=== PATIENT | male | born 1945 | race Caucasian/White ===

== ENCOUNTER 2017-01-02 10:19 | Emergency (ER) | payer MEDICARE ==
[~2017-01-02] VITALS: Ht 180.3 cm; Wt 91.0 kg
[~2017-01-02 10:19] MED LIST: HTN MED PO; LOVA20TA PO; PROT40TA PO
[2017-01-02 10:21] VITALS: BP 146/84; PULSE 93; RESP 16; TEMP 98; O2SAT 95
[2017-01-02 10:30] VITALS: BP 147/87; PULSE 91; RESP 16; O2SAT 98
[2017-01-02] MEDS ORDERED: LOVA20TA PO (10:34)
[2017-01-02] MEDS ORDERED: LISI-519 PO (10:34)
[2017-01-02] MEDS ORDERED: PROT40TA PO (10:34)
[2017-01-02] MEDS ORDERED: SINUS MED (10:34)
--- NOTE | 2017-01-02 10:48 | PD ---
HPI Chief Complaint: Hypertension Time Seen by Provider: 10:29 Travel History International Travel<30 days: No Contact w/Intl Traveler<30days: No Traveled to known affect area: No History of Present Illness HPI This patient complains of lightheadedness. Symptoms are mild. Duration 1 hour. Started approximately 15 minutes after he took his cholesterol pill which is something he does every morning. No headache or chest pain or syncope. He is ambulatory. No other neurologic complaint. PFSH Past Medical History Arthritis: Yes Autoimmune Disease: No Heart Rhythm Problems: No Cancer: No Cardiovascular Problems: Yes (HTN) High Cholesterol: Yes Chest Pain: Yes (TODAY) Congestive Heart Failure: No Diabetes: No Diminished Hearing: No Endocrine: No Gastrointestinal Disorders: Yes (ACID REFLUX) GERD: Yes Genitourinary: No Hiatal Hernia: No Hypertension: Yes Immune Disorder: No Implanted Vascular Access Dvce: No Kidney Stones: No Medical other: Yes (reflux) Musculoskeletal: Yes Neurologic: No Psychiatric: No Reproductive: No Respiratory: Yes Immunizations Current: No Thyroid Disease: No Triglycerides - High: Yes Ulcer: No Tetanus Vaccination: Unknown Past Surgical History Abdominal Surgery: No AICD: No Arteriovenous Shunt: No Cardiac Surgery: No Ear Surgery: No Endocrine Surgery: No Eye Surgery: Yes (samy cataract surgery) Genitourinary Surgery: No Gynecologic Surgery: No Insulin Pump: No Joint Replacement: No Neurologic Surgery: No Oral Surgery: No Pacemaker: No Thoracic Surgery: No Other Surgery: Yes Social History Alcohol Use: No Tobacco Use: Yes (1 PPD ) Substance Use: No Allergies-Medications (Allergen,Severity, Reaction): Coded Allergies: Penicillin (Verified Allergy, Severe, Burning, 01/02/17) Reported Meds & Prescriptions Reported Meds & Active Scripts Active Reported [Sinus Med] Protonix (Pantoprazole Sodium) 40 Mg Tab 40 Mg PO DAILY Lisinopril 5 Mg Tab 5 Mg PO DAILY Lovastatin 20 Mg Tab 20 Mg PO DAILY Review of Systems General / Constitutional: No: Fever Eyes: No: Visual changes HENT: Positive: Lightheadedness, No: Headaches Cardiovascular: No: Chest Pain or Discomfort Respiratory: No: Shortness of Breath Gastrointestinal: No: Abdominal Pain Genitourinary: No: Dysuria Musculoskeletal: No: Pain Skin: No Rash Neurologic: Positive: Dizziness, No: Weakness Psychiatric: No: Depression Endocrine: No: Polydipsia Hematologic/Lymphatic: No: Easy Bruising Physical Exam Narrative GENERAL: Well-nourished, well-developed patient in no apparent distress. SKIN: Focused skin assessment reveals no rash and nodules. Skin is Warm and dry. HEAD: Atraumatic. Normocephalic. EYES: Pupils equal and round. No scleral icterus. No injection or drainage. ENT: No nasal bleeding or discharge. Mucous membranes pink and moist. NECK: Trachea midline. No JVD. CARDIOVASCULAR: Regular rate and rhythm. No murmur appreciated. RESPIRATORY: No accessory muscle use. Clear to auscultation. Breath sounds equal bilaterally. GASTROINTESTINAL: Abdomen soft, non-tender, nondistended. Hepatic and splenic margins not palpable. MUSCULOSKELETAL: No obvious deformities. No clubbing. No cyanosis. No edema. NEUROLOGICAL: Awake and alert. No obvious cranial nerve deficits. Motor grossly within normal limits. Normal speech. PSYCHIATRIC: Appropriate mood and affect; insight and judgment normal. Data Data Last Documented VS Vital Signs Date Time Temp Pulse Resp B/P Pulse Ox O2 Delivery O2 Flow Rate FiO2 01/02/17 11:03 77 16 157/78 94 Room Air 01/02/17 10:21 98.0 Orders Electrocardiogram (01/02/17 ) [facility] / Telemetry [email or web address] (01/02/17 10:38) [facility] Medical Decision Making Medical Screen Exam Complete: Yes Emergency Medical Condition: Yes Medical Record Reviewed: Yes Differential Diagnosis Medication side effect, vasovagal episode, cardiac arrhythmia, vertigo Narrative Course I have reviewed the patient's electronic medical record. Patient's exam is normal including neurologic exam Patient is minimally symptomatic with normal vital signs EKG shows sinus rhythm without ectopy Extended cardiac monitoring reveals sinus rhythm without ectopy He ambulated around the department without any difficulty I continued some further monitoring but he is minimally symptomatic and stable for outpatient follow-up Diagnosis Primary Impression: Dizziness Additional Instructions: The patient was advised to follow up with their physician and return if they worsen. Med/Other Pt SpecificInfo: Other Disposition: 01 DISCHARGE HOME Condition: Stable David Garza MD Jan 02, 2017 10:48
[2017-01-02 11:03] VITALS: BP 157/78; PULSE 77; RESP 16; O2SAT 94
--- NOTE | 2017-01-03 12:09 | EKG ---
Date Performed: 01/02/2017 Time Performed: 10:38:14 PTAGE: 71 years EKG: Sinus rhythm Indeterminate axis Borderline ECG PREVIOUS TRACING : 04/25/2016 23.07 DOCTOR: Chapo Edwards Interpretating Date/Time 01/03/2017 12:03:21
== END 2017-01-02 11:46 | disposition home or self-care (01) ==
LOC: PHED 10:19
DX: R42 Dizziness and giddiness (principal); R94.31 Abnormal electrocardiogram [ECG] [EKG]; I10 Essential (primary) hypertension; E78.00 Pure hypercholesterolemia, unspecified; E78.1 Pure hyperglyceridemia; F17.200 Nicotine dependence, unspecified, uncomplicated; Z87.39 Personal history of other diseases of the musculoskeletal system and connective tissue; Z87.19 Personal history of other diseases of the digestive system; Z87.09 Personal history of other diseases of the respiratory system
CPT/HCPCS: 93005

== ENCOUNTER 2017-02-14 11:22 | Emergency (ER) | payer MEDICARE ==
[~2017-02-14] VITALS: Ht 180.3 cm; Wt 91.6 kg
[~2017-02-14 11:22] MED LIST changes: -HTN MED PO; +LISI-519 PO; +SINUS MED
[2017-02-14 11:23] VITALS: BP 173/85; PULSE 100; RESP 17; TEMP 98.1; O2SAT 96
[2017-02-14] MEDS ORDERED: MELO7.5T4 PO (11:37)
--- NOTE | 2017-02-14 11:57 | PD ---
HPI Chief Complaint: Dizziness Time Seen by Provider: 11:37 Travel History International Travel<30 days: No Contact w/Intl Traveler<30days: No Traveled to known affect area: No History of Present Illness HPI 71-year-old male complaining generalized malaise and weakness and dizziness and headache. Patient states that the symptoms started about 2 months ago. Patient states that the headache gets aching headache diffuse over the head. Patient denies any visual change. Patient states that he has occasional blurred vision. Patient states that he started having neck and low back pain recently. Patient denies any coughing congestion. Patient denies any chest pain or shortness of breath. Patient denies abdominal pain. Patient denies any nausea vomiting diarrhea. Patient denies any focal weakness or numbness of extremity. Patient was seen by personal physician recently and given meloxicam for neck and back pain. Patient has history hypertension, hyperlipidemia. Patient is a smoker. Patient denies history diabetes. Patient denies history of CAD. Patient denies any history of TIA or CVA. Patient was seen by personal physician recently and waiting referral for neurologist. PFSH Past Medical History Arthritis: Yes Autoimmune Disease: No Heart Rhythm Problems: No Cancer: No Cardiovascular Problems: Yes (HTN) High Cholesterol: Yes Chest Pain: Yes (TODAY) Congestive Heart Failure: No Diabetes: No Diminished Hearing: No Endocrine: No Gastrointestinal Disorders: Yes (ACID REFLUX) GERD: Yes Genitourinary: No Hiatal Hernia: No Hypertension: Yes Immune Disorder: No Implanted Vascular Access Dvce: No Kidney Stones: No Medical other: Yes (reflux) Musculoskeletal: Yes Neurologic: No Psychiatric: No Reproductive: No Respiratory: Yes Immunizations Current: No Thyroid Disease: No Triglycerides - High: Yes Ulcer: No Tetanus Vaccination: Unknown ?: Not Past Surgical History Abdominal Surgery: No AICD: No Arteriovenous Shunt: No Cardiac Surgery: No Ear Surgery: No Endocrine Surgery: No Eye Surgery: Yes (samy cataract surgery) Genitourinary Surgery: No Gynecologic Surgery: No Insulin Pump: No Joint Replacement: No Neurologic Surgery: No Oral Surgery: No Pacemaker: No Thoracic Surgery: No Other Surgery: Yes Social History Alcohol Use: No Tobacco Use: Yes (1 PPD ) Substance Use: No Allergies-Medications (Allergen,Severity, Reaction): Coded Allergies: Penicillin (Verified Allergy, Severe, Burning, 02/14/17) Reported Meds & Prescriptions Reported Meds & Active Scripts Active Reported Meloxicam 7.5 Mg Tab 7.5 Mg PO DAILY Protonix (Pantoprazole Sodium) 40 Mg Tab 40 Mg PO DAILY Lisinopril 5 Mg Tab 5 Mg PO EVERY OTHER DAY Lovastatin 20 Mg Tab 20 Mg PO DAILY Review of Systems General / Constitutional: No: Fever Eyes: No: Visual changes HENT: Positive: Headaches, Lightheadedness Cardiovascular: No: Chest Pain or Discomfort Respiratory: No: Shortness of Breath Gastrointestinal: No: Abdominal Pain Genitourinary: No: Dysuria Musculoskeletal: No: Pain Skin: No Rash Neurologic: No: Weakness Psychiatric: No: Depression Endocrine: No: Polydipsia Hematologic/Lymphatic: No: Easy Bruising Physical Exam Narrative GENERAL: Well-nourished, well-developed patient. SKIN: Focused skin assessment warm/dry. HEAD: Normocephalic. EYES: No scleral icterus. No injection or drainage. Pupils 2 mm equal reactive. NECK: Supple, trachea midline. No JVD or lymphadenopathy. No meningismus CARDIOVASCULAR: Regular rate and rhythm without murmurs, gallops, or rubs. RESPIRATORY: Breath sounds equal bilaterally. No accessory muscle use. GASTROINTESTINAL: Abdomen soft, non-tender, nondistended. MUSCULOSKELETAL: No cyanosis, or edema. BACK: Nontender without obvious deformity. No CVA tenderness. Neurologic exam: Patient's awake and alert oriented 3. No obvious focal neurological deficit. Data Data Last Documented VS Vital Signs Date Time Temp Pulse Resp B/P Pulse Ox O2 Delivery O2 Flow Rate FiO2 02/14/17 11:59 96 02/14/17 11:33 16 02/14/17 11:23 98.1 100 173/85 Orders Electrocardiogram (02/14/17 11:45) Complete Blood Count With Diff (02/14/17 11:45) Comprehensive Metabolic Panel (02/14/17 11:45) Troponin I (02/14/17 11:45) Prothrombin Time / Inr (Pt) (02/14/17 11:45) Act Partial Throm Time (Ptt) (02/14/17 11:45) Urinalysis - C+S If Indicated (02/14/17 11:45) Thyroid Stimulating Hormone (02/14/17 11:45) Chest, Single Ap (02/14/17 11:45) Ct Brain W/O Iv Contrast(Rout) (02/14/17 11:45) Iv Access Insert/Monitor (02/14/17 11:45) Ecg Monitoring (02/14/17 11:45) Oximetry (02/14/17 11:45) Labs Laboratory Tests Test 02/14/17 02/14/17 11:57 13:15 White Blood Count 6.4 TH/MM3 Red Blood Count 5.28 MIL/MM3 Hemoglobin 16.0 GM/DL Hematocrit 47.7 % Mean Corpuscular Volume 90.5 FL Mean Corpuscular Hemoglobin 30.4 PG Mean Corpuscular Hemoglobin 33.6 % Concent Red Cell Distribution Width 12.3 % Platelet Count 168 TH/MM3 Mean Platelet Volume 7.9 FL Neutrophils (%) (Auto) 67.8 % Lymphocytes (%) (Auto) 21.8 % Monocytes (%) (Auto) 6.6 % Eosinophils (%) (Auto) 1.1 % Basophils (%) (Auto) 2.7 % Neutrophils # (Auto) 4.3 TH/MM3 Lymphocytes # (Auto) 1.4 TH/MM3 Monocytes # (Auto) 0.4 TH/MM3 Eosinophils # (Auto) 0.1 TH/MM3 Basophils # (Auto) 0.2 TH/MM3 CBC Comment DIFF FINAL Differential Comment Prothrombin Time 12.2 SEC Prothromb Time International 1.1 RATIO Ratio Activated Partial 21.7 SEC Thromboplast Time Sodium Level 139 MEQ/L Potassium Level 4.1 MEQ/L Chloride Level 104 MEQ/L Carbon Dioxide Level 26.1 MEQ/L Anion Gap 9 MEQ/L Blood Urea Nitrogen 19 MG/DL Creatinine 1.00 MG/DL Estimat Glomerular Filtration 73 ML/MIN Rate Random Glucose 173 MG/DL Calcium Level 9.2 MG/DL Total Bilirubin 0.8 MG/DL Aspartate Amino Transf 41 U/L (AST/SGOT) Alanine Aminotransferase 47 U/L (ALT/SGPT) Alkaline Phosphatase 71 U/L Troponin I LESS THAN 0.02 NG/ML Total Protein 7.1 GM/DL Albumin 3.7 GM/DL Thyroid Stimulating Hormone 4.580 uIU/ML 3rd Gen Urine Collection Type CLEAN CATCH Urine Color YELLOW Urine Turbidity CLEAR Urine pH 5.5 Urine Specific [place] 1.008 Urine Protein NEG mg/dL Urine Glucose (UA) NEG mg/dL Urine Ketones NEG mg/dL Urine Occult Blood SMALL Urine Nitrite NEG Urine Bilirubin NEG Urine Leukocyte Esterase NEG Urine RBC 4-9 /hpf Urine Squamous Epithelial 0-5 /hpf Cells Microscopic Urinalysis Comment CULT NOT INDICATED Urine Collection Time 13:15 [facility] Medical Decision Making Medical Screen Exam Complete: Yes Emergency Medical Condition: Yes Interpretation(s) Last Impressions Head CT 02/14/17 1145 Signed Impressions: Service Date/Time: Tuesday, February 14, 2017 12:02 - CONCLUSION: White matter disease is identified end remote appearing lacunar infarcts. Andrei St MD Chest x-ray shows no acute pulmonary process. CBC within normal limit. 1331 PM. CBC within normal limit. BUN 19. Glucose 173. Cardiac enzymes are normal. TSH 4.58. Differential Diagnosis Differential diagnosis including migraine headache, tension headache, cluster headache, intracranial pathology, dehydration, electrolyte imbalance, Narrative Course 71-year-old male with persistent headache, dizziness, neck pain back pain. Diagnosis Primary Impression: Cephalgia Qualified Code: R51 - Chronic nonintractable headache, unspecified headache type Additional Impression: Dizziness Patient Instructions: General Instructions Med/Other Pt SpecificInfo: Prescription(s) given Scripts Luyqdajlww-Lwwkbccyidtzy-Mlqvbkvx (Fioricet)50-300-40 Mg Cap1-2 Cap PO Q6H PRN ( HEADACHE) #30 CAP Ref 0 Prov:Osvaldo Mariscal MD 02/14/17 Meclizine 25 Mg Tab25 Mg PO TID PRN (VERTIGO) #30 TAB Ref 0 Prov:Osvaldo Mariscal MD 02/14/17 Disposition: 01 DISCHARGE HOME Condition: Stable Osvaldo Mariscal MD February 14, 2017 11:57
[2017-02-14 11:59] VITALS: O2SAT 96
[2017-02-14 12:14] LABS: AUTOMATED NEUTROPHIL # 4.3 TH/MM3 (1.8-7.7); BASOPHIL # 0.2 TH/MM3 (0-0.2); BASOPHIL % 2.7 % (0.0-2.0); EOSINOPHIL # 0.1 TH/MM3 (0-0.4); EOSINOPHIL % 1.1 % (0.0-4.0); HEMATOCRIT 47.7 % (39.0-51.0); HEMO FLAGS DIFF FINAL; LYMPH % 21.8 % (9.0-44.0); LYMPHOCYTE # 1.4 TH/MM3 (1.0-4.8); MEAN CELL VOLUME 90.5 FL (80.0-100.0); MEAN CORPUSCULAR HEMOGLOBIN 30.4 PG (27.0-34.0); MEAN CORPUSCULAR HGB CONC 33.6 % (32.0-36.0); MONO % 6.6 % (0.0-8.0); NEUT % 67.8 % (16.0-70.0); PLATELET COUNT 168 TH/MM3 (150-450); RED BLOOD COUNT 5.28 MIL/MM3 (4.50-5.90); RED CELL DISTRIBUTION WIDTH 12.3 % (11.6-17.2); WHITE BLOOD COUNT 6.4 TH/MM3 (4.0-11.0)
--- NOTE | 2017-02-14 12:34 | RADHPO ---
EXAM DATE/TIME: 02/14/2017 12:02 [facility] COMPARISON: No previous studies available for comparison. INDICATIONS : Dizziness and generalized weakness. RADIATION DOSE: 63.77 CTDIvol (mGy) MEDICAL HISTORY : Hypertension. SURGICAL HISTORY : None. ENCOUNTER: Initial ACUITY: 1 day PAIN SCALE: 0/10 LOCATION: cranial TECHNIQUE: Multiple contiguous axial images were obtained of the head. Using automated exposure control and adj ustment of the mA and/or kV according to patient size, radiation dose was kept as low as reasonably a chievable to obtain optimal diagnostic quality images. FINDINGS: There is patchy hypodensity in the bilateral periventricular white matter, nonspecific though felt to be characteristic of mild chronic microvascular ischemic disease. There are lacunar infarcts present in the basal ganglia bilaterally. No fractures. No hemorrhage. No masses are seen. CONCLUSION: White matter disease is identified end remote appearing lacunar infarcts. Andrei St MD on February 14, 2017 at 12:31 Board Certified Radiologist. This report was verified electronically.
[2017-02-14 12:42] LABS: CHLORIDE 104 MEQ/L (98-107); SODIUM (NA) 139 MEQ/L (136-145)
[2017-02-14 12:45] LABS: APTT (PATIENT) 21.7 SEC (24.3-30.1); INTERNATIONAL NORMALIZED RATIO 1.1 RATIO; PROTHROMBIN TIME - PATIENT 12.2 SEC (9.8-11.6)
[2017-02-14 12:47] LABS: ANION GAP 9 MEQ/L (5-15); BICARBONATE 26.1 MEQ/L (21.0-32.0); BLOOD UREA NITROGEN 19 MG/DL (7-18)
--- NOTE | 2017-02-14 12:47 | RADHPO ---
EXAM DATE/TIME: 02/14/2017 12:32 [facility] COMPARISON: CHEST SINGLE AP, April 25, 2016, 17:20. INDICATIONS : Short of breath and dizziness MEDICAL HISTORY : None. SURGICAL HISTORY : None. ENCOUNTER: Initial ACUITY: 1 day PAIN SCORE: 3/10 LOCATION: Bilateral chest FINDINGS: A single view of the chest demonstrates the lungs to be symmetrically aerated without evidence of mas s, infiltrate or effusion. The cardiomediastinal contours are unremarkable. Osseous structures are intact. CONCLUSION: No acute disease. Adama Castro MD on February 14, 2017 at 12:45 Board Certified Radiologist. This report was verified electronically.
[2017-02-14 12:50] LABS: ALT (GPT) 47 U/L (12-78); AST (GOT) 41 U/L (15-37); GLOMERULAR FILTRATION RATE 73 ML/MIN (>89)
[2017-02-14 12:51] LABS: TOTAL BILIRUBIN ADULT 0.8 MG/DL (0.2-1.0)
[2017-02-14 12:53] LABS: ALKALINE PHOSPHATASE 71 U/L (45-117)
[2017-02-14 13:02] LABS: POTASSIUM 4.1 MEQ/L (3.5-5.1)
[2017-02-14 13:20] LABS: BLOOD, URINE SMALL (NEG); GLUCOSE,URINE NEG (NEG); KETONE, URINE NEG (NEG); NITRITE,URINE NEG (NEG); PH, URINE 5.5 (5.0-8.5)
[2017-02-14 13:26] LABS: METHOD OF COLLECTION CLEAN CATCH; URINE COLOR YELLOW (YELLW/STRAW)
[2017-02-14 13:27] LABS: COMMENT (UR) CULT NOT INDICATED; CULTURE IF INDICATED CULT NOT INDICATED; SQUAMOUS EPITHELIAL CELL URINE 0-5 /hpf (0-5)
[2017-02-14] MEDS ORDERED: MECL-62 PO (13:45)
[2017-02-14] MEDS ORDERED: BUTA1CAP PO (13:46)
[2017-02-14 14:01] VITALS: BP 142/92
--- NOTE | 2017-02-15 17:38 | EKG ---
Date Performed: 02/14/2017 Time Performed: 11:54:40 PTAGE: 71 years EKG: Sinus tachycardia with PVC(s) Nonspecific ST and T wave abnormalities PREVIOUS TRACING : 01/02/2017 10.38 Compared to the previous tracing, rate has increased DOCTOR: Jaya Mix Interpretating Date/Time 02/15/2017 17:37:36
== END 2017-02-14 14:05 | disposition home or self-care (01) ==
LOC: PHED 11:22
DX: R51 Headache (principal); R42 Dizziness and giddiness; M54.2 Cervicalgia; M54.9 Dorsalgia, unspecified; I10 Essential (primary) hypertension; E78.5 Hyperlipidemia, unspecified; E78.00 Pure hypercholesterolemia, unspecified; K21.9 Gastro-esophageal reflux disease without esophagitis; F17.200 Nicotine dependence, unspecified, uncomplicated
CPT/HCPCS: 70450; 71010; 80053; 81001; 84443; 84484; 85025; 85610; 85730; 93005; 99285

== ENCOUNTER 2017-06-04 15:09 | Emergency (ER) | payer MEDICARE ==
[~2017-06-04] VITALS: Ht 180.3 cm; Wt 91.1 kg
[~2017-06-04 15:09] MED LIST changes: +BUTA1CAP PO; +MECL-62 PO; +MELO7.5T4 PO; -SINUS MED
[2017-06-04 15:16] VITALS: BP 160/86; PULSE 116; RESP 16; TEMP 98.2; O2SAT 97
[2017-06-04 17:27] VITALS: BP 171/83; PULSE 98; RESP 16; TEMP 98.2; O2SAT 98
[2017-06-04 19:28] VITALS: RESP 18; O2SAT 97
[2017-06-04 19:29] VITALS: BP 137/80; PULSE 85; RESP 18; O2SAT 97
[2017-06-04] MEDS ORDERED: ASPIRIN 81 MG CHEW TAB PO ONE (19:30)
[2017-06-04] MEDS ORDERED: SODIUM CHLORIDE 0.9% FLUSH 10 ML FLUSH IVF PRN (19:30)
--- NOTE | 2017-06-04 19:39 | RADRPT ---
EXAM DATE/TIME: 06/04/2017 19:29 [facility] COMPARISON: CHEST SINGLE AP, February 14, 2017, 12:32. INDICATIONS : Chest pain today. MEDICAL HISTORY : Hypertension. SURGICAL HISTORY : None. ENCOUNTER: Initial ACUITY: 1 day PAIN SCORE: 4/10 LOCATION: Bilateral chest FINDINGS: A single view of the chest demonstrates the lungs to be symmetrically aerated without evidence of mas s, infiltrate or effusion. The cardiomediastinal contours are unremarkable. Osseous structures are intact. CONCLUSION: No acute disease. Javi Morgan MD on June 04, 2017 at 19:36 Board Certified Radiologist. This report was verified electronically.
[2017-06-04 19:49] VITALS: BP_SYST 130; BP_SYST 134; BP_DIAS 71; BP_DIAS 78
--- NOTE | 2017-06-04 20:01 | PD ---
HPI Chief Complaint: Chest Pain Time Seen by Provider: 19:20 Travel History International Travel<30 days: No Contact w/Intl Traveler<30days: No Traveled to known affect area: No History of Present Illness HPI 72-year-old male presents to the emergency department by private transportation for complaint of 3 days of retrosternal burning chest pain. Patient reports pain was up to a 6 in intensity is currently 2/10 in intensity. Patient states that he has reflux esophagitis with similar symptoms. Patient does have history of hypertension dyslipidemia and tobaccoism. Patient states he has not taken his medications today. Patient does not recall if he took his medications last night. Patient states earlier today while having his chest discomfort he felt weak had referred discomfort to the left upper extremity and had some mild diaphoresis. Patient did have reportedly a negative stress test approximately 1 year ago was seen by Dr. Olguin for an echocardiogram reportedly 6 months ago that was reportedly unremarkable. Patient denies history of diabetes or any family history of cardiac disease. Patient is not taking medication for his discomfort prior to arrival to the emergency department included did not take aspirin. Patient's only prescription he feels much better at this time and was just nervous. Patient denies any abdominal pain. Patient denies any referred neck jaw back or abdominal pain did note some vague left shoulder discomfort. PFSH Past Medical History Narrative Medical Hypertension dyslipidemia chest pain vertigo tobaccoism; nursing notes reviewed Arthritis: Yes Autoimmune Disease: No Heart Rhythm Problems: No Cancer: No Cardiovascular Problems: Yes (HTN) High Cholesterol: Yes Chest Pain: Yes (TODAY) Congestive Heart Failure: No Diabetes: No Diminished Hearing: Yes (HEAERING AIDS) Endocrine: No Gastrointestinal Disorders: Yes (ACID REFLUX) GERD: Yes Genitourinary: No Hiatal Hernia: No Hypertension: Yes Immune Disorder: No Implanted Vascular Access Dvce: No Kidney Stones: No Medical other: Yes (reflux) Musculoskeletal: Yes Neurologic: No Psychiatric: No Reproductive: No Respiratory: Yes Immunizations Current: No Thyroid Disease: No Triglycerides - High: Yes Ulcer: No Tetanus Vaccination: Unknown Influenza Vaccination: No Past Surgical History Abdominal Surgery: No AICD: No Arteriovenous Shunt: No Cardiac Surgery: No Ear Surgery: No Endocrine Surgery: No Eye Surgery: Yes (samy cataract surgery) Genitourinary Surgery: No Gynecologic Surgery: No Insulin Pump: No Joint Replacement: No Neurologic Surgery: No Oral Surgery: No Pacemaker: No Thoracic Surgery: No Other Surgery: Yes Social History Alcohol Use: No Tobacco Use: Yes (1 PPD ) Substance Use: No Allergies-Medications (Allergen,Severity, Reaction): Coded Allergies: penicillin G (Unverified Allergy, Severe, Burning, 06/04/17) Reported Meds & Prescriptions Reported Meds & Active Scripts Active Reported Protonix (Pantoprazole Sodium) 40 Mg Tab 40 Mg PO DAILY Lisinopril 5 Mg Tab 5 Mg PO EVERY OTHER DAY Lovastatin 20 Mg Tab 20 Mg PO DAILY Review of Systems Except as stated in HPI: all other systems reviewed are Neg General / Constitutional: No: Fever, Chills Eyes: No: Visual changes HENT: No: Headaches, Vertigo, Lightheadedness, Neck Pain Cardiovascular: Positive: Chest Pain or Discomfort ( "burning"), Diaphoresis Respiratory: No: Shortness of Breath Gastrointestinal: No: Nausea Genitourinary: No: Flank Pain Musculoskeletal: No: Pain Skin: No Rash Neurologic: Positive: Weakness Psychiatric: No: Anxiety Hematologic/Lymphatic: No: Lymph Node Enlargement Physical Exam Narrative GENERAL: Well-developed well-nourished male in no acute distress no respiratory distress SKIN: Warm and dry. HEAD: Normocephalic. EYES: No scleral icterus. No injection or drainage. NECK: Supple, trachea midline. No JVD or lymphadenopathy. CARDIOVASCULAR: Regular rate and rhythm without murmurs, gallops, or rubs. RESPIRATORY: Breath sounds equal bilaterally. No accessory muscle use. GASTROINTESTINAL: Abdomen soft, non-tender, nondistended. MUSCULOSKELETAL: No cyanosis, or edema. Radial and dorsalis pedis pulses 2+ to palpation bilaterally BACK: Nontender without obvious deformity. No CVA tenderness. Data Data Last Documented VS Vital Signs Date Time Temp Pulse Resp B/P (MAP) Pulse Ox O2 Delivery O2 Flow Rate FiO2 06/04/17 19:49 134/78 (96) 130/71 (90) 06/04/17 19:29 85 18 97 Room Air 06/04/17 17:27 98.2 Orders Orders Electrocardiogram (06/04/17 19:20) Basic Metabolic Panel (Bmp) (06/04/17 19:20) Ckmb (Isoenzyme) Profile (06/04/17 19:20) Complete Blood Count With Diff (06/04/17 19:20) Magnesium (Mg) (06/04/17 19:20) Prothrombin Time / Inr (Pt) (06/04/17 19:20) Act Partial Throm Time (Ptt) (06/04/17 19:20) Troponin I (06/04/17 19:20) Chest, Single Ap (06/04/17 19:20) Ecg Monitoring (06/04/17 19:20) Bilateral Bp Monitoring (06/04/17 19:20) Iv Access Insert/Monitor (06/04/17 19:20) Oximetry (06/04/17 19:20) Oxygen Administration (06/04/17 19:20) Aspirin Chew (Aspirin Chew) (06/04/17 19:30) Sodium Chloride 0.9% Flush (Ns Flush) (06/04/17 19:30) Pantoprazole Inj (Protonix Inj) (06/04/17 20:30) Labs Laboratory Tests Test 06/04/17 19:49 White Blood Count 8.4 TH/MM3 Red Blood Count 5.11 MIL/MM3 Hemoglobin 15.7 GM/DL Hematocrit 46.5 % Mean Corpuscular Volume 91.0 FL Mean Corpuscular Hemoglobin 30.8 PG Mean Corpuscular Hemoglobin Concent 33.9 % Red Cell Distribution Width 13.1 % Platelet Count 190 TH/MM3 Mean Platelet Volume 7.8 FL Neutrophils (%) (Auto) 69.2 % Lymphocytes (%) (Auto) 23.6 % Monocytes (%) (Auto) 5.3 % Eosinophils (%) (Auto) 1.1 % Basophils (%) (Auto) 0.8 % Neutrophils # (Auto) 5.8 TH/MM3 Lymphocytes # (Auto) 2.0 TH/MM3 Monocytes # (Auto) 0.4 TH/MM3 Eosinophils # (Auto) 0.1 TH/MM3 Basophils # (Auto) 0.1 TH/MM3 CBC Comment DIFF FINAL Differential Comment Prothrombin Time 10.8 SEC Prothromb Time International Ratio 1.0 RATIO Activated Partial Thromboplast Time 28.4 SEC Blood Urea Nitrogen 14 MG/DL Creatinine 1.10 MG/DL Random Glucose 96 MG/DL Calcium Level 8.9 MG/DL Magnesium Level 2.2 MG/DL Sodium Level 138 MEQ/L Potassium Level 3.4 MEQ/L Chloride Level 102 MEQ/L Carbon Dioxide Level 28.9 MEQ/L Anion Gap 7 MEQ/L Estimat Glomerular Filtration Rate 65 ML/MIN Total Creatine Kinase 84 U/L Troponin I LESS THAN 0.02 NG/ML MDM Medical Decision Making Medical Screen Exam Complete: Yes Emergency Medical Condition: Yes Medical Record Reviewed: Yes Interpretation(s) EKG normal sinus rhythm rate [address] segment elevation or injury pattern or ectopy noted Differential Diagnosis Chest pain, atypical chest pain, reflux, ACS, ME, gastritis, pancreatitis; also to consider aneurysm, dissection Narrative Course Patient placed on rn cardiac rehab IV access obtained specimens collected and sent for resulting EKG ordered; EKG sinus rhythm no acute ST elevation or injury pattern change noted Cardiac risk factors: male age over 40Y tobacco use HTN hypertriglyceridemia, missed medications recently AMA: The risks of leaving against medical advice without further evaluation treatment were discussed with the patient. These risks include cardiac dysfunction, cardiac dysrhythmia, possible heart attack, possible stroke or . The patient indicated understanding of these risks and appeared to have the capacity to make this decision. Diagnosis Primary Impression: Chest pain Referrals: [facility] 1 day Additional Instructions: Even though you have decided to sign out AGAINST MEDICAL ADVICE please return immediately to the emergency room for any concerns or return of symptoms Disposition: 07 AGAINST MEDICAL ADVICE Condition: Stable Lanie Lr MD Jun 04, 2017 20:01
[2017-06-04 20:02] LABS: AUTOMATED NEUTROPHIL # 5.8 TH/MM3 (1.8-7.7); BASOPHIL # 0.1 TH/MM3 (0-0.2); BASOPHIL % 0.8 % (0.0-2.0); EOSINOPHIL # 0.1 TH/MM3 (0-0.4); EOSINOPHIL % 1.1 % (0.0-4.0); HEMATOCRIT 46.5 % (39.0-51.0); HEMO FLAGS DIFF FINAL; LYMPH % 23.6 % (9.0-44.0); MEAN CORPUSCULAR HEMOGLOBIN 30.8 PG (27.0-34.0); MEAN CORPUSCULAR HGB CONC 33.9 % (32.0-36.0); MONO % 5.3 % (0.0-8.0); NEUT % 69.2 % (16.0-70.0); PLATELET COUNT 190 TH/MM3 (150-450); RED BLOOD COUNT 5.11 MIL/MM3 (4.50-5.90); RED CELL DISTRIBUTION WIDTH 13.1 % (11.6-17.2); WHITE BLOOD COUNT 8.4 TH/MM3 (4.0-11.0)
[2017-06-04 20:08] LABS: CHLORIDE 102 MEQ/L (98-107); POTASSIUM 3.4 MEQ/L (3.5-5.1); SODIUM (NA) 138 MEQ/L (136-145)
[2017-06-04 20:12] LABS: ANION GAP 7 MEQ/L (5-15); BICARBONATE 28.9 MEQ/L (21.0-32.0); BLOOD UREA NITROGEN 14 MG/DL (7-18); MAGNESIUM 2.2 MG/DL (1.5-2.5)
[2017-06-04 20:14] LABS: APTT (PATIENT) 28.4 SEC (24.3-30.1); PROTHROMBIN TIME - PATIENT 10.8 SEC (9.8-11.6)
[2017-06-04 20:15] LABS: GLOMERULAR FILTRATION RATE 65 ML/MIN (>89)
[2017-06-04 20:21] LABS: CREATINE KINASE 84 U/L (39-308)
[2017-06-04] MEDS ORDERED: PANTOPRAZOLE SODIUM 40 MG VIAL IV PUSH ONE (20:30)
--- NOTE | 2017-06-05 13:58 | EKG ---
Date Performed: 06/04/2017 Time Performed: 15:24:48 PTAGE: 72 years EKG: SINUS TACHYCARDIA INDETERMINATE AXIS ABNORMAL RHYTHM ECG Compared to prior tracing no signi ficant change PREVIOUS TRACING : 02/14/2017 11.54 DOCTOR: Rebecca Barillas Interpretating Date/Time 06/05/2017 13:54:54
--- NOTE | 2017-06-05 13:59 | EKG ---
Date Performed: 06/04/2017 Time Performed: 19:50:04 PTAGE: 72 years EKG: Sinus rhythm INDETERMINATE AXIS ATYPICAL ECG Compared to prior tracing no significant change PREVIOUS TRACING : 06/04/2017 15.24 DOCTOR: Rebecca Barillas Interpretating Date/Time 06/05/2017 13:55:04
== END 2017-06-04 21:08 | disposition left against medical advice (07) ==
LOC: PHED 15:09
DX: R07.9 Chest pain, unspecified (principal); E78.5 Hyperlipidemia, unspecified; H91.90 Unspecified hearing loss, unspecified ear; I10 Essential (primary) hypertension; K21.0 Gastro-esophageal reflux disease with esophagitis; Z88.0 Allergy status to penicillin; F17.210 Nicotine dependence, cigarettes, uncomplicated; Z79.899 Other long term (current) drug therapy
CPT/HCPCS: 71010; 80048; 82550; 83735; 84484; 85025; 85610; 85730; 93005; 96374; 99285; C9113

== ENCOUNTER 2017-12-22 12:09 | Emergency (ER) | payer MEDICARE ==
[~2017-12-22] VITALS: Ht 180.3 cm; Wt 88.9 kg
[~2017-12-22 12:09] MED LIST changes: -BUTA1CAP PO; -MECL-62 PO; -MELO7.5T4 PO
[2017-12-22 12:13] VITALS: BP 159/70; PULSE 88; RESP 16; TEMP 98.6; O2SAT 97
[2017-12-22] MEDS ORDERED: LISI-519 PO (12:29)
[2017-12-22] MEDS ORDERED: ACETAMINOPHEN 325 MG TAB PO ONE (12:45)
--- NOTE | 2017-12-22 13:10 | PD ---
HPI Chief Complaint: Headache Time Seen by Provider: 12:38 Travel History International Travel<30 days: No Contact w/Intl Traveler<30days: No Traveled to known affect area: No History of Present Illness HPI 72 yo M c/o cephalgia for about one month. He reports about 5 months ago striking vertex of the head no traumatic injury. He followed with neurology and an MRI was performed revealing no acute injury. He reports the pain returned over the last month. Ibuprofen is minimally helpful. No loss of consciousness. No numbness tingling weakness. No neck stiffness. No fever or vomiting. PFSH Past Medical History Hx Anticoagulant Therapy: Yes (asa 8mg ) Arthritis: Yes Autoimmune Disease: No Blood Disorders: No Heart Rhythm Problems: No Cancer: No Cardiovascular Problems: Yes (htn on meds) High Cholesterol: Yes Chemotherapy: No Chest Pain: Yes Congestive Heart Failure: No Cerebrovascular Accident: Yes (tia's) Diabetes: No Diminished Hearing: Yes (HEAERING AIDS) Endocrine: No Gastrointestinal Disorders: Yes (ACID REFLUX) GERD: Yes Glaucoma: No Genitourinary: No Hepatitis: No Hiatal Hernia: No Hypertension: Yes Immune Disorder: No Implanted Vascular Access Dvce: No Kidney Stones: No Medical other: Yes (reflux) Musculoskeletal: Yes Neurologic: No Psychiatric: No Reproductive: No Respiratory: Yes Immunizations Current: No Myocardial Infarction: No Radiation Therapy: No Thyroid Disease: No Triglycerides - High: Yes Ulcer: No Tetanus Vaccination: Unknown Past Surgical History Abdominal Surgery: No AICD: No Arteriovenous Shunt: No Cardiac Surgery: No Ear Surgery: No Endocrine Surgery: No Eye Surgery: Yes (samy cataract surgery) Genitourinary Surgery: No Gynecologic Surgery: No Insulin Pump: No Joint Replacement: No Neurologic Surgery: No Oral Surgery: No Pacemaker: No Thoracic Surgery: No Other Surgery: Yes Social History Alcohol Use: No Tobacco Use: Yes (1 PPD ) Substance Use: No Allergies-Medications (Allergen,Severity, Reaction): Coded Allergies: penicillin G (Unverified Allergy, Severe, Burning, 12/22/17) Reported Meds & Prescriptions Reported Meds & Active Scripts Active Mapap Extra Strength (Acetaminophen) 500 Mg Tab 500 Mg PO Q8HR PRN 14 Days Reported Lisinopril 5 Mg Tab 5 Mg PO DAILY Protonix (Pantoprazole Sodium) 40 Mg Tab 40 Mg PO DAILY Lovastatin 20 Mg Tab 20 Mg PO DAILY Review of Systems Except as stated in HPI: all other systems reviewed are Neg Physical Exam Narrative GENERAL: Well-nourished well-developed 72-year-old male no acute distress Vital Signs Date Time Temp Pulse Resp B/P (MAP) Pulse Ox O2 Delivery O2 Flow Rate FiO2 12/22/17 13:49 80 16 97 12/22/17 12:25 16 97 Room Air 12/22/17 12:13 98.6 88 16 159/70 (99) 97 SKIN: Warm and dry. HEAD: Atraumatic. Normocephalic. EYES: Pupils equal and round. No scleral icterus. No injection or drainage. ENT: No nasal bleeding or discharge. Mucous membranes pink and moist. NECK: Trachea midline. No JVD. CARDIOVASCULAR: Regular rate and rhythm. RESPIRATORY: No accessory muscle use. Clear to auscultation. Breath sounds equal bilaterally. GASTROINTESTINAL: Abdomen soft, non-tender, nondistended. Hepatic and splenic margins not palpable. MUSCULOSKELETAL: Extremities without clubbing, cyanosis, or edema. No obvious deformities. NEUROLOGICAL: Awake and alert. No obvious cranial nerve deficits. Motor grossly within normal limits. Five out of 5 muscle strength in the arms and legs. Normal speech. PSYCHIATRIC: Appropriate mood and affect; insight and judgment normal. Data Data Last Documented VS Vital Signs Date Time Temp Pulse Resp B/P (MAP) Pulse Ox O2 Delivery O2 Flow Rate FiO2 12/22/17 13:49 80 16 97 12/22/17 12:25 Room Air 12/22/17 12:13 98.6 159/70 (99) Orders Orders Ct Brain W/O Iv Contrast(Rout) (12/22/17 12:44) Acetaminophen (Tylenol) (12/22/17 12:45) Ed Discharge Order (12/22/17 13:45) MDM Medical Decision Making Medical Screen Exam Complete: Yes Emergency Medical Condition: Yes Differential Diagnosis Migraine, intracranial hemorrhage, giant cell arteritis, aneurysm Narrative Course MRI Brain Oct 12, 2017 CONCLUSION: 1. No bleed, acute infarct or other acute intracranial abnormality. 2. 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 3. Apparent right greater than left mastoiditis in the proper clinical setting. Last Impressions Head CT 12/22/17 1244 Signed Impressions: Service Date/Time: Friday, December 22, 2017 13:10 - CONCLUSION: Stable negative noncontrast head CT. Gene Layne MD The patient is resting comfortably and feels better, is alert and in no distress. The patients results and examination findings were discussed. The repeat examination is unremarkable and benign. The history, exam, diagnostic testing, and current condition do not suggest any significant pathology to warrant further testing, continued ED treatment, admission, or surgical evaluation at this point. The vital signs have been stable. The patient does not have uncontrollable pain, intractable vomiting, or other significant symptoms. The patient's condition is stable and appropriate for discharge. The patient will pursue further outpatient evaluation with a primary care physician or other designated or consulting physician as indicated in the discharge instructions. The patient expressed understanding and was agreeable with this plan. Diagnosis Primary Impression: Cephalgia Qualified Codes: R51 - Headache Referrals: Neurologist as needed Scripts Acetaminophen (Mapap Extra Strength) 500 Mg Tab 500 MG PO Q8HR Y for HEADACHE for 14 Days, TAB 0 Refills Prov: Albin Mix MD 12/22/17 Disposition: 01 DISCHARGE HOME Condition: Stable Albin Mix MD Dec 22, 2017 13:10
--- NOTE | 2017-12-22 13:34 | RADRPT ---
EXAM DATE/TIME: 12/22/2017 13:10 [facility] COMPARISON: CT BRAIN W/O CONTRAST, February 14, 2017, 12:02. INDICATIONS : Patient complains of pain on the top of his head. RADIATION DOSE: 65.62 CTDIvol (mGy) MEDICAL HISTORY : Hypertension. Hypercholesterolemia. Gastroesophageal reflux disease.TIA, pt hit his head 5 months ago . Ca throat, rad tx SURGICAL HISTORY : None. ENCOUNTER: Initial ACUITY: 1 day PAIN SCALE: 5/10 LOCATION: cranial TECHNIQUE: Multiple contiguous axial images were obtained of the head. Using automated exposure control and adj ustment of the mA and/or kV according to patient size, radiation dose was kept as low as reasonably a chievable to obtain optimal diagnostic quality images. DICOM format image data is available electro nically for review and comparison. FINDINGS: CEREBRUM: The ventricles are normal for age. No evidence of midline shift, mass lesion, hemorrhage or acute in farction. No extra-axial fluid collections are seen. POSTERIOR FOSSA: The cerebellum and brainstem are intact. The 4th ventricle is midline. The cerebellopontine angle i s unremarkable. EXTRACRANIAL: The visualized portion of the orbits is intact. SKULL: The calvaria is intact. No evidence of skull fracture. CONCLUSION: Stable negative noncontrast head CT. Gene Layne MD on December 22, 2017 at 13:31 Board Certified Radiologist. This report was verified electronically.
[2017-12-22] MEDS ORDERED: MAPA500T13 PO (13:47)
== END 2017-12-22 13:55 | disposition home or self-care (01) ==
LOC: PHED 12:09
DX: R51 Headache (principal); M19.90 Unspecified osteoarthritis, unspecified site; I10 Essential (primary) hypertension; E78.00 Pure hypercholesterolemia, unspecified; K21.9 Gastro-esophageal reflux disease without esophagitis; E78.1 Pure hyperglyceridemia; Z79.899 Other long term (current) drug therapy; Z88.0 Allergy status to penicillin; Z86.73 Personal history of transient ischemic attack (TIA), and cerebral infarction without residual deficits
CPT/HCPCS: 70450; 99283